=== PATIENT | female | born 1970 | race Caucasian/White ===

== ENCOUNTER 2020-02-11 21:50 | Inpatient (IN) | payer SELFPAY ==
[~2020-02-11] VITALS: Ht 152.4 cm; Wt 97.0 kg
[~2020-02-11 21:50] MED LIST: ALPR1T PO; HCT25T PO; HYDR118S10 PO; IBP600T1; MTP25TSR PO; SULF1TAB38 PO; TRAM50TA2 PO; ZLP10T PO
[2020-02-11] MEDS ORDERED: LACTATED RINGERS 1,000 ML IV ONE (22:01)
[2020-02-11] MEDS ORDERED: fentaNYL INJECTION 100 MCG/2 ML AMP IVP STA (22:25)
[2020-02-11] MEDS ORDERED: IBUPROFEN TABLET 200 MG TAB PO STA (22:25)
[2020-02-11 22:38] LABS: BASOPHILS % (AUTO) 0 % (0-10); EOSINOPHILS % (AUTO) 0 % (0-10); HEMATOCRIT 43 % (35-52); HEMOGLOBIN 14.8 G/DL (11.5-16.0); LYMPHOCYTES # (AUTO) 0.5 X 10^3 (1.0-4.0); LYMPHOCYTES % (AUTO) 13 % (12-44); MEAN CORPUSCULAR HEMOGLOBIN 30 PG (25-34); MEAN CORPUSCULAR HGB CONC 34 G/DL (32-36); MEAN CORPUSCULAR VOLUME 88 FL (80-99); MONOCYTES # (AUTO) 0.3 X 10^3 (0.0-1.0); MONOCYTES % (AUTO) 8 % (0-12); NEUTROPHILS # (AUTO) 2.7 X 10^3 (1.8-7.8); NEUTROPHILS % (AUTO) 78 % (42-75); PLATELET COUNT 173 10^3/uL (130-400); RED CELL DISTRIBUTION WIDTH 13.4 % (10.0-14.5); WHITE BLOOD COUNT 3.5 10^3/uL (4.3-11.0)
--- NOTE | 2020-02-11 22:44 | ED General ---
General Chief Complaint: Chest Pain Stated Complaint: CP Source of Information: Patient Exam Limitations: No Limitations History of Present Illness Date Seen by Provider: Feb 11, 2020 Time Seen by Provider: 21:52 Initial Comments Here with report of chest pressure, shortness of air, body aches and overall not feeling well since 4:30 this morning. States may have been not feeling well yesterday. She did take 2 Falls of NyQuil about 2 hours prior to arrival. She arrives febrile, sweating and in distress. Denies nausea, vomiting, diarrhea. Denies contact with COVID positive patient's. Admits to methamphetamine use 2-3 days ago. Denies significant cough. Reports that she's been drinking okay but had decreased appetite. Timing/Duration: 1-2 Days Severity: Moderate Associated Systoms: Chest Pain, Cough, Fever/Chills, Loss of Appetite; No Nausea/Vomiting; Shortness of Air, Weakness Allergies and Home Medications Allergies Coded Allergies: No Known Drug Allergies (Verified Allergy, Unknown, 07/08/09) Home Medications Alprazolam 1 Mg Tablet, 2 MG PO BID, (Reported) Hydrochlorothiazide 25 Mg Tab, 1 TAB PO DAILY, (Reported) Hydrocodone/Acetaminophen 1 Each Tablet, 1-2 EACH PO Q6H PRN Prescribed by: ELSA GAMBINO on 02/26/122237 Metoprolol Succinate 25 Mg Tab, 1 TAB PO DAILY, (Reported) Tramadol Hcl 50 Mg Tablet, 2 TAB PO TID, (Reported) Trimethoprim/Sulfamethoxazole 1 Ea Tablet, 1 EA PO BID Prescribed by: ELSA GAMBINO on 02/26/122237 Zolpidem Tartrate 10 Mg Tab, 10 MG PO HS, (Reported) Patient Home Medication List Home Medication List Reviewed: Yes Review of Systems Review of Systems Constitutional: see HPI, chills, fever EENTM: nose congestion; No throat pain Respiratory: cough (mild), short of breath; No wheezing Cardiovascular: chest pain; No edema, No palpitations Gastrointestinal: No abdominal pain, No diarrhea, No nausea, No vomiting Genitourinary: No dysuria, No frequency : No Musculoskeletal: back pain, muscle pain Skin: No change in color; other (Diaphoretic) Psychiatric/Neurological: Anxiety, Headache Hematologic/Lymphatic: No Symptoms Reported All Other Systems Reviewed Negative Unless Noted: Yes Past Yfbnflj-Uiiyie-Fdyutg Hx Past Med/Social Hx: Reviewed Nursing Past Med/Soc Hx Patient Social History Alcohol Use: Denies Use Recreational Drug Use: Yes (meth) Smoking Status: Current Everyday Smoker Past Medical History Surgeries: Yes Hysterectomy Respiratory: No Cardiac: No Neurological: No 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 Disorders: No [employer] 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 oz. kg; BMI Method:Stated General Appearance: WD/WN, Anxious, Obese HEENT: PERRL/EOMI, Pharynx Normal Neck: Non Tender, Supple Respiratory: Lungs Clear, Normal Breath Sounds Cardiovascular: No Murmur, Tachycardia Gastrointestinal: Non Tender Back: Normal Inspection, No Vertebral Tenderness Extremity: Normal Range of Motion, Non Tender Neurologic/Psychiatric: Alert, Oriented x3 Skin: normal color, diaphoresis Focused Exam Lactate Level 02/11/20 22:20: Lactic Acid Level 1.67 Lactic Acid Level Laboratory Tests Test 02/11/20 22:20 Lactic Acid Level 1.67 MMOL/L (0.50-2.00) Progress/Results/Core Measures Suspected Sepsis SIRS Temperature: Pulse: Respiratory Rate: Laboratory Tests 02/11/20 22:20: White Blood Count 3.5L Blood Pressure / Mean: 02/11/20 22:20: Lactic Acid Level 1.67 Laboratory Tests 02/11/20 22:20: Creatinine 0.85, INR Comment 1.0, Platelet Count 173, Total Bilirubin 0.4 Results/Orders Lab Results Laboratory Tests Test 02/11/20 22:20 02/11/20 23:28 Range/Units White Blood Count 3.5 L 4.3-11.0 10^3/uL Red Blood Count 4.91 4.35-5.85 10^6/uL Hemoglobin 14.8 11.5-16.0 G/DL Hematocrit 43 35-52 % Mean Corpuscular Volume 88 80-99 FL Mean Corpuscular Hemoglobin 30 25-34 PG Mean Corpuscular Hemoglobin Concent 34 32-36 G/DL Red Cell Distribution Width 13.4 10.0-14.5 % Platelet Count 173 130-400 10^3/uL Mean Platelet Volume 10.0 7.4-10.4 FL Neutrophils (%) (Auto) 78 H 42-75 % Lymphocytes (%) (Auto) 13 12-44 % Monocytes (%) (Auto) 8 0-12 % Eosinophils (%) (Auto) 0 0-10 % Basophils (%) (Auto) 0 0-10 % Neutrophils # (Auto) 2.7 1.8-7.8 X 10^3 Lymphocytes # (Auto) 0.5 L 1.0-4.0 X 10^3 Monocytes # (Auto) 0.3 0.0-1.0 X 10^3 Eosinophils # (Auto) 0.0 0.0-0.3 10^3/uL Basophils # (Auto) 0.0 0.0-0.1 10^3/uL Erythrocyte Sedimentation Rate 9 0-20 MM/HR Prothrombin Time 13.9 12.2-14.7 SEC INR Comment 1.0 0.8-1.4 Activated Partial Thromboplast Time 35 24-35 SEC D-Dimer 1.48 H 0.00-0.49 UG/ML Sodium Level 132 L 135-145 MMOL/L Potassium Level 4.0 3.6-5.0 MMOL/L Chloride Level 101 98-107 MMOL/L Carbon Dioxide Level 20 L 21-32 MMOL/L Anion Gap 11 5-14 MMOL/L Blood Urea Nitrogen 12 7-18 MG/DL Creatinine 0.85 0.60-1.30 MG/DL Estimat Glomerular Filtration Rate > 60 BUN/Creatinine Ratio 14 Glucose Level 116 H 70-105 MG/DL Lactic Acid Level 1.67 0.50-2.00 MMOL/L Calcium Level 8.8 8.5-10.1 MG/DL Corrected Calcium 9.0 8.5-10.1 MG/DL Total Bilirubin 0.4 0.1-1.0 MG/DL Aspartate Amino Transf (AST/SGOT) 114 H 5-34 U/L Alanine Aminotransferase (ALT/SGPT) 146 H 0-55 U/L Alkaline Phosphatase 89 40-136 U/L Lactate Dehydrogenase 306 H 125-220 U/L Troponin I 0.035 H <0.028 NG/ML C-Reactive Protein High Sensitivity 3.58 H 0.00-0.50 MG/DL Total Protein 6.9 6.4-8.2 GM/DL Albumin 3.7 3.2-4.5 GM/DL Procalcitonin 0.27 H <0.10 NG/ML Urine Color YELLOW Urine Clarity SL CLOUDY Urine pH 6.5 5-9 Urine Specific [place] 1.020 1.016-1.022 Urine Protein NEGATIVE NEGATIVE Urine Glucose (UA) NEGATIVE NEGATIVE Urine Ketones NEGATIVE NEGATIVE Urine Nitrite NEGATIVE NEGATIVE Urine Bilirubin NEGATIVE NEGATIVE Urine Urobilinogen 0.2 < = 1.0 MG/DL Urine Leukocyte Esterase NEGATIVE NEGATIVE Urine RBC (Auto) 1+ H NEGATIVE Urine RBC RARE /HPF Urine WBC NONE /HPF Urine Squamous Epithelial Cells RARE /HPF Urine Crystals NONE /LPF Urine Bacteria TRACE /HPF Urine Casts NONE /LPF Urine Mucus SMALL H /LPF Urine Culture Indicated CULTURE PENDING Urine Opiates Screen NEGATIVE NEGATIVE Urine Oxycodone Screen NEGATIVE NEGATIVE Urine Methadone Screen NEGATIVE NEGATIVE Urine Propoxyphene Screen NEGATIVE NEGATIVE Urine Barbiturates Screen NEGATIVE NEGATIVE Ur Tricyclic Antidepressants Screen NEGATIVE NEGATIVE Urine Phencyclidine Screen NEGATIVE NEGATIVE Urine Amphetamines Screen POSITIVE H NEGATIVE Urine Methamphetamines Screen NEGATIVE NEGATIVE Urine Benzodiazepines Screen POSITIVE H NEGATIVE Urine Cocaine Screen NEGATIVE NEGATIVE Urine Cannabinoids Screen POSITIVE H NEGATIVE My Orders Orders - ELSA GAMBINO MD Cbc With Automated Diff (02/11/20 22:) Comprehensive Metabolic Panel (02/11/20 22:) Blood Culture (02/11/20 22:01) Sputum Culture (02/11/20 22:) Urinalysis (02/11/20 22:) Urine Culture (02/11/20 22:) Protime With Inr (02/11/20 22:) Partial Thromboplastin Time (02/11/20 22:) Chest 1 View, Ap/Pa Only (02/11/20 22:) Ed Iv/Invasive Line Start (02/11/20 22:) Ekg Tracing (02/11/20 22:) Troponin I (02/11/20 22:) Vital Signs Adult Sepsis Patie Q15M (02/11/20 22:01) O2 (02/11/20 22:) Remove Rings In Anticipation O (02/11/20 22:) Lactic Acid Analyzer (02/11/20 22:01) Fibrin Degradation Products (02/11/20 22:01) Procalcitonin (Pct) (02/11/20 22:01) Hs C Reactive Protein (02/11/20 22:) Erythrocyte Sedimentation Rate (02/11/20 22:01) LDH (02/11/20 22:01) Coronavirus Sars-Cov-2 So 2018 (02/11/20 22:01) Lactated Ringers (Lr 1000 Ml Iv Solution (02/11/20 22:01) Fentanyl Injection (Sublimaze Injection (02/11/20 22:25) Ibuprofen Tablet (Motrin Tablet) (02/11/20 22:25) Drug Screen Stat (Urine) (02/11/20 23:17) Aspirin Chewable Tablet (Baby Aspirin Ch (02/11/20 23:36) Medications Given in ED Current Medications Medications Dose Ordered Sig/Meryl Route Start Time Stop Time Status Last Admin Dose Admin Lactated Ringer's 1,000 ml @ 0 mls/hr Q0M ONCE IV 02/11/20 22:01 02/11/20 22:03 DC 02/11/20 22:20 0 MLS/HR Vital Signs/I&O 02/11/20 02/11/20 02/11/20 02/11/20 21:50 21:50 23:00 23:45 Temp 38.9 36.7 Pulse 119 90 101 Resp 25 20 20 B/P (MAP) 155/100 (118) 101/56 (71) 132/70 (90) Pulse Ox 94 92 92 O2 Delivery Room Air Room Air Room Air Room Air Capillary Refill : Progress Note : Progress Note Seen and evaluated. IV, labs, UA, EKG, chest x-ray, blood cultures, lactic acid and covered screening initiated. LR 1 L bolus and ibuprofen 600 mg by mouth due to fever and recent Tylenol use. Fentanyl 50 g IV for chest pain. Monitor patient. 2332: Findings as above. I do note elevated d-dimer was slightly elevated troponin. We were able to get UA. I discussed the case with Dr. Torres and she will go to the stepdown unit. I did discuss the case with Dr. Ames and he will see the patient and consult. I have also discussed the case with the virtual ICU team. We will go ahead and initiate Lovenox 40 mg subcutaneous daily with the first dose in the ICU tonight. We will not give full dose anticoagulation as the elevated d-dimer is likely related to COVID-19 infection which this patient likely has. Chest x-ray at this point does not show acute pneumonia. We will hold on further scanning pending outpatient is doing. Admit, inpatient status. Patient agrees with plan. I did discuss the case with the patient's father earlier and his contact information is on the chart. ECG Initial ECG Impression Date: Feb 11, 2020 Initial ECG Impression Time: 21:52 Initial ECG Rate: 116 Initial ECG Rhythm: S.Tach Comment Sinus tachycardia with normal axis. No evidence of ST elevation MO. No previous available for comparison. Interpreted by me. Departure Communication (Admissions) Time/Spoke to Admitting Phy: 23:32 Time/Spoke to Consulting Phy: 23:33 Impression Primary Impression: Chest pain Qualified Codes: R07.9 - Chest pain, unspecified Additional Impressions: Elevated troponin Elevated d-dimer COVID-19 evaluation Disposition: ADMITTED INPATIENT Condition: Stable Admissions Decision to Admit Reason: Admit from ER (General) Decision to Admit/Date: Feb 11, 2020 Time/Decision to Admit Time: 23:32 Departure-Patient Inst. Referrals: SANTO ALVARADO MD (PCP/Family) Primary Care Physician ELSA GAMBINO MD Feb 11, 2020 22:44
--- OUTSIDE RECORDS SUMMARY | 2020-02-11 22:46 | XMS REPORT | Continuity of Care Document ---
Author Organization Unknown Address Unknown Phone Unavailable Allergies There is no data. Medications There is no data. Problems Date Dx Coded Attending Type Code Diagnosis Diagnosed By 02/20/2009 SANTO ALVARADO MD 461.9 Sinusitis Acute 10/04/2012 SANTO ALVARADO MD 311 DEPRESSIVE DISORDER NOT ELSEWHERE CLASSIFIED 10/04/2012 SANTO ALVARADO MD 780.7 9 OTHER MALAISE AND FATIGUE Procedures Code Description [place] [address] ROUT INE VENIPUNCTURE 10/04/2012 85036 CMP 10/05/20129011288 GF R CALC (RESULT ONLY) 10/05/2012 00547 TSH 10/05/2012 Results Test Result Range Complete blood count (CBC) with automate d white blood cell (WBC) differential - 02/11/20 22:20 Blood leukocytes automated count (number/volume) 3.5 10*3/uL 4.3-11.0 Blood erythrocytes automated count (number/volume) 4.91 10*6/uL 4.35-5.85 Venous blood hemoglobin measurement (mass/volume) 14.8 g/dL 11.5-16.0 Blood hematocrit (volume fraction) 43 % 35-52 Automated erythrocyte mean corpuscular volume 88 [ foz_us] 80-99 Automated erythrocyte mean corpuscular h emoglobin (mass per erythrocyte) 30 pg 25-34 Automated erythrocyte mean corpuscular h emoglobin concentration measurement (mass/volume) 34 g/dL 32-36 Automated erythrocyte distribution width ratio 13. 4 % 10.0- 14.5 Automated blood platelet count (count/volume) 173 10*3/uL 130-400 Automated blood platelet mean volume measurement 10.0 [foz_us] 7.4-10.4 Automated blood neutrophils/100 leukocytes 78 % 42-75 Automated blood lymphocytes/100 leukocytes 13 % 12-44 Blood monocytes/100 leukocytes 8 % 0-12 Automated blood eosinophils/100 leukocytes 0 % 0-10 Automated blood basophils/100 leukocytes 0 % 0-10 Blood neutrophils automated count (number/volume) 2.7 10*3 1.8-7.8 Blood lymphocytes automated count (number/volume) 0.5 10*3 1.0-4.0 Blood monocytes automated count (number/volume) 0. 3 10*3 0.0-1.0 Automated eosinophil count 0.0 10*3/uL 0 .0-0.3 Automated blood basophil count (count/volume) 0.0 10*3/uL 0.0-0.1 Encounters ACCT No. Visit Date/Time Discharge Status Pt. Type Provider Facility Loc./Unit Complaint [id number] 10/04/2012 15:43:00 10/04/2012 23:59: 59 [facility] Outpatient SANTO ALVARADO MD [id number] 02/11/2020 22:39:00 Document Registration
[2020-02-11 22:52] LABS: ALBUMIN 3.7 GM/DL (3.2-4.5); CHLORIDE 101 MMOL/L (98-107); SODIUM 132 MMOL/L (135-145)
[2020-02-11 22:53] LABS: CALCIUM 8.8 MG/DL (8.5-10.1); FIBRIN DEGRADATION PRODUCTS 1.48 UG/ML (0.00-0.49); PROTHROMBIN TIME PATIENT 13.9 SEC (12.2-14.7)
[2020-02-11 22:54] LABS: GLUCOSE 116 MG/DL (70-105); TOTAL PROTEIN 6.9 GM/DL (6.4-8.2)
[2020-02-11 22:55] LABS: CARBON DIOXIDE 20 MMOL/L (21-32)
[2020-02-11 22:56] LABS: BILIRUBIN,TOTAL 0.4 MG/DL (0.1-1.0)
[2020-02-11 22:57] LABS: ALKALINE PHOSPHATASE 89 U/L (40-136); ERYTHROCYTE SEDIMENTATION RATE 9 MM/HR (0-20)
[2020-02-11 22:58] LABS: CREATININE SERUM 0.85 MG/DL (0.60-1.30); GFR ESTIMATED > 60
[2020-02-11 22:59] LABS: BUN/CREATININE RATIO 14
[2020-02-11 23:00] VITALS: BP 101/56
[2020-02-11 23:01] LABS: ALANINE AMINOTRANSFERASE 146 U/L (0-55)
[2020-02-11] MEDS ORDERED: ASPIRIN 81 MG CHEW (CHILDREN'S ASA) PO STA (23:36)
[2020-02-11 23:44] LABS: BILIRUBIN,URINE NEGATIVE (NEGATIVE); CLARITY,URINE SL CLOUDY; COLOR,URINE YELLOW; GLUCOSE, URINE (UA) NEGATIVE (NEGATIVE); KETONES,URINE NEGATIVE (NEGATIVE); LEUKOCYTE ESTERASE ,URINE NEGATIVE (NEGATIVE); NITRITE,URINE NEGATIVE (NEGATIVE); PH,URINE 6.5 (5-9); PROTEIN,URINE NEGATIVE (NEGATIVE)
[2020-02-11 23:45] VITALS: BP 132/70
[2020-02-11 23:51] LABS: BACTERIA,URINE TRACE /HPF; RBC,URINE RARE /HPF; SQUAMOUS EPITHELIAL CELL,UR RARE /HPF
[2020-02-12] VITALS (10 sets, daily range): BP systolic 93–155; BP diastolic 60–100
[2020-02-12] LABS: AMPHETAMINE SCREEN, URINE POSITIVE (NEGATIVE); BARBITURATE SCREEN URINE NEGATIVE (NEGATIVE); BENZODIAZEPINES SCREEN URINE POSITIVE (NEGATIVE); CANNABINOID SCREEN, URINE POSITIVE (NEGATIVE); COCAINE SCREEN URINE NEGATIVE (NEGATIVE); METHADONE STAT NEGATIVE (NEGATIVE); METHAMPHETAMINE SCREEN URINE S NEGATIVE (NEGATIVE); OPIATE SCREEN URINE NEGATIVE (NEGATIVE); OXYCODONE STAT NEGATIVE (NEGATIVE); PROPOXYPHENE STAT NEGATIVE (NEGATIVE); TRICYCLIC ANTIDEPRESSANTS SCRE NEGATIVE (NEGATIVE)
--- OUTSIDE RECORDS SUMMARY | 2020-02-12 00:03 | XMS REPORT | Continuity of Care Document ---
[...] Code Description [place] [address] ROUT INE VENIPUNCTURE 10/04/2012 12157 CMP 10/05/[id number] GF R CALC (RESULT ONLY) 10/05/2012 18103 TSH 10/05/2012 Results Test Result Range Complete [...] blood basophil count (count/volume) 0.0 10*3/uL 0.0-0.1 Comprehensive metabolic panel - 02/11/20 22:20 Serum or plasma sodium measurement (moles/volume) 132 mmol/L 135-145 Serum or plasma potassium measurement (moles/volume) 4.0 mmol/L 3.6-5.0 Serum or plasma chloride measurement (moles/volume) 101 mmol/L 98-107 Carbon dioxide 20 mmol/L 21-32 Serum or plasma anion gap determination (moles/volume) 11 mmol/L 5-14 Serum or plasma urea nitrogen measurement (mass/volume ) 12 mg/dL 7-18 Serum or plasma creatinine measurement (mass/volume) 0.85 mg/dL 0.60-1.30 Serum or plasma urea nitrogen/creatinine mass ratio 14 NRG Serum or plasma creatinine measurement w ith calculation of estimated glomerular filtration rate > NRG Serum or plasma glucose measurement (mass/volume) 116 mg/dL 70-105 Serum or plasma calcium measurement (mass/volume) 8.8 mg/dL 8.5-10.1 Serum or plasma total bilirubin measurement (mass/volu me) 0.4 mg/dL 0.1-1.0 Serum or plasma alkaline phosphatase tao surement (enzymatic activity/volume) 89 U/L 40-136 Serum or plasma aspartate aminotransfera se measurement (enzymatic activity/volume) 114 U/L 5-34 Serum or plasma alanine aminotransferase measurement (enzymatic activity/volume) 146 U/L 0-55 Serum or plasma protein measurement (mass/volume) 6.9 g/dL 6.4-8.2 Serum or plasma albumin measurement (mass/volume) 3.7 g/dL 3.2-4.5 CALCIUM CORRECTED 9.0 mg/dL 8.5-10.1 Blood lactic acid measurement (moles/vol ume) - 02/11/20 22:20 Blood lactic acid measurement (moles/volume) 1.67 mmol/L 0.50-2.00 Erythrocyte sedimentation rate by jaqueline gren method - 02/11/20 22:20 Erythrocyte sedimentation rate by westergren method 9 mm 0- 20 Serum ragweed IgE antibody assay - 02/10 22:20 Serum ragweed IgE antibody assay 306 U/L 125-220 PROCALCITONIN (PCT) - 02/11/20 22:20 PROCALCITONIN (PCT) 0.27 ng/mL <0.10 PT panel in platelet poor plasma by coag ulation assay - 02/11/20 22:20 Prothrombin time (PT) in platelet poor plasma by coagu lation assay 13.9 s 12.2-14.7 INR in platelet poor plasma or blood by coagulation as say 1.0 0.8-1.4 Activated partial thromboplastin time (a PTT) in platelet poor plasma bycoagulation assay - 02/11/20 22:20 Activated partial thromboplastin time (a PTT) in platelet poor plasma bycoagulation assay 35 s 24-35 Fibrin D-dimer FEU measurement in platel et poor plasma (mass/volume) - 02/11/20 22:20 Fibrin D-dimer FEU measurement in platelet poor plasma (mass/volume) 1.48 ug/mL 0.00-0.49 Serum or plasma troponin i.cardiac measu rement (mass/volume) - 02/11/20 22:20 Serum or plasma troponin i.cardiac measurement (mass/v olume) 0.035 ng/mL <0.028 Serum or plasma C reactive protein measu rement (mass/volume) - 02/11/20 22:20 Serum or plasma C reactive protein measurement (mass/v olume) 3.58 mg/dL 0.00-0.50 Complete urinalysis with reflex to cultu re - 02/11/20 23:28 Urine color determination YELLOW NRG Urine clarity determination SL CLOUDY N RG Urine pH measurement by test strip 6.5 5-9 Specific gravity of urine by test strip 1.020 1.016-1.022 Urine protein assay by test strip, semi-quantitative NEGATIVE NEGATIVE Urine glucose detection by automated test strip NE GATIVE NEGATIVE Erythrocytes detection in urine sediment by light micr oscopy 1+ NEGATIVE Urine ketones detection by automated test strip NE GATIVE NEGATIVE Urine nitrite detection by test strip NEGATIVE NEGATIVE Urine total bilirubin detection by test strip NEGA TIVE NEGATIVE Urine urobilinogen measurement by automated test strip (mass/volume) 0.2 mg/dL < = 1.0 Urine leukocyte esterase detection by dipstick NEG ATIVE NEGATIVE Automated urine sediment erythrocyte cou nt by microscopy (number/high power field) RARE NRG Automated urine sediment leukocyte count by microscopy (number/high power field) NONE NRG Bacteria detection in urine sediment by light microsco py TRACE NRG Squamous epithelial cells detection in u rine sediment by light microscopy RARE NRG Crystals detection in urine sediment by light microsco py NONE NRG Casts detection in urine sediment by light microscopy NONE NRG Mucus detection in urine sediment by light microscopy SMALL NRG Complete urinalysis with reflex to culture CULTURE PENDING NRG Urine drug screening test - 02/11/20 23: 28 Urine phencyclidine detection by screening method NEGATIVE NEGATIVE Urine benzodiazepines detection by screening method POSITIVE NEGATIVE Urine cocaine detection NEGATIVE NEGATI VE Urine amphetamines detection by screening method P OSITIVE NEGATIVE Urine methamphetamine detection by screening method NEGATIVE NEGATIVE Urine cannabinoids detection by screening method P OSITIVE NEGATIVE Urine opiates detection by screening method NEGATI VE NEGATIVE Urine barbiturates detection NEGATIVE N EGATIVE Screening urine tricyclic antidepressants detection NEGATIVE NEGATIVE Urine methadone detection by screening method NEGA TIVE NEGATIVE Urine oxycodone detection NEGATIVE NEGA TIVE Urine propoxyphene detection NEGATIVE N EGATIVE Encounters ACCT No. Visit Date/Time Discharge Status Pt. Type Provider Facility Loc./Unit Complaint [id number] 10/04/2012 15:43:00 10/04/2012 23:59: 59 [facility] Outpatient JENNY MOROCHO, SANTO [id number] 02/11/2020 22:39:00 Document Registration
[2020-02-12] MEDS ORDERED: LACTATED RINGERS 1,000 ML IV ONE (00:36)
[2020-02-12] MEDS ORDERED: ONDANSETRON 4 MG/2 ML (SDV) Z0FRAN IV PRN (00:45)
[2020-02-12] MEDS ORDERED: LACTATED RINGERS 1,000 ML IV SCH (00:45)
[2020-02-12] MEDS ORDERED: ACETAMINOPHEN 500 MG TAB (TYLENOL) PO PRN (00:45)
[2020-02-12] MEDS ORDERED: ENOXAPARIN 40 MG/0.4 ML (LOVENOX) SYR SC SCH (01:04)
[2020-02-12 01:31] LABS: CREATINE KINASE 89 U/L (29-168)
[2020-02-12] MEDS ORDERED: RT-ALBUTEROL/IPRATROPIUM 3 ML (DUONEB) VIAL INH PRN (02:15)
[2020-02-12 03:16] LABS: BASOPHILS % (AUTO) 1 % (0-10); EOSINOPHILS % (AUTO) 0 % (0-10); HEMATOCRIT 41 % (35-52); HEMOGLOBIN 13.6 G/DL (11.5-16.0); LYMPHOCYTES # (AUTO) 0.5 X 10^3 (1.0-4.0); LYMPHOCYTES % (AUTO) 19 % (12-44); MEAN CORPUSCULAR HEMOGLOBIN 30 PG (25-34); MEAN CORPUSCULAR HGB CONC 34 G/DL (32-36); MEAN CORPUSCULAR VOLUME 88 FL (80-99); MEAN PLATELET VOLUME 9.9 FL (7.4-10.4); MONOCYTES # (AUTO) 0.2 X 10^3 (0.0-1.0); MONOCYTES % (AUTO) 8 % (0-12); NEUTROPHILS % (AUTO) 73 % (42-75); PLATELET COUNT 144 10^3/uL (130-400); RED CELL DISTRIBUTION WIDTH 13.6 % (10.0-14.5); WHITE BLOOD COUNT 2.8 10^3/uL (4.3-11.0)
[2020-02-12 03:26] LABS: ALBUMIN 3.3 GM/DL (3.2-4.5); CHLORIDE 103 MMOL/L (98-107); POTASSIUM 3.9 MMOL/L (3.6-5.0); SODIUM 134 MMOL/L (135-145)
[2020-02-12 03:27] LABS: CALCIUM 8.2 MG/DL (8.5-10.1)
[2020-02-12 03:28] LABS: GLUCOSE 105 MG/DL (70-105)
[2020-02-12 03:30] LABS: BILIRUBIN,TOTAL 0.3 MG/DL (0.1-1.0); CARBON DIOXIDE 22 MMOL/L (21-32)
[2020-02-12 03:32] LABS: ALKALINE PHOSPHATASE 81 U/L (40-136); GFR ESTIMATED > 60
[2020-02-12 03:33] LABS: BUN/CREATININE RATIO 16
[2020-02-12 03:35] LABS: ALANINE AMINOTRANSFERASE 147 U/L (0-55)
--- NOTE | 2020-02-12 05:11 | Pulmonary Consultation ---
History of Present Illness History of Present Illness Date Seen by Provider: Feb 12, 2020 Time Seen by Provider: 05:03 Date of Admission History of Present Illness 49yo with hx of drug use presented secondary to worsening SOB, body aches that started around 430 yesterday morning. Pt had fever of 102 upon admission. UDS is positive for meth and marijuanna. Denies contact with COVID positive patient's. Admits to methamphetamine use 2-3 days ago. Denies significant cough. Allergies and Home Medications Allergies Coded Allergies: No Known Drug Allergies (Verified , 07/08/09) Home Medications Alprazolam 1 Mg Tablet, 2 MG PO BID, (Reported) Hydrochlorothiazide 25 Mg Tab, 1 TAB PO DAILY, (Reported) Hydrocodone/Acetaminophen 1 Each Tablet, 1-2 EACH PO Q6H PRN Prescribed by: ELSA GAMBINO on 02/26/122237 Metoprolol Succinate 25 Mg Tab, 1 TAB PO DAILY, (Reported) Tramadol Hcl 50 Mg Tablet, 2 TAB PO TID, (Reported) Trimethoprim/Sulfamethoxazole 1 Ea Tablet, 1 EA PO BID Prescribed by: ELSA GAMBINO on 02/26/122237 Zolpidem Tartrate 10 Mg Tab, 10 MG PO HS, (Reported) Past Lhssmky-Wbirdh-Vtxfnw Hx Past Med/Social Hx: Reviewed Nursing Past Med/Soc Hx Patient Social History Alcohol Use: Denies Use Number of Drinks Today: 0 Recreational Drug Use: Yes (meth) Drug of Choice: IV METHAMPHETAMINE Smoking Status: Current Everyday Smoker Type Used: Cigarettes 2nd Hand Smoke Exposure: Yes Recent Foreign Travel: No Contact w/Someone Who Travel: No Recent Infectious Disease Expo: No Recent Hopitalizations: No Past Medical History Surgeries: Yes Hysterectomy Respiratory: No Cardiac: No Neurological: No 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: No 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 Sexually Transmitted Disease: No Genitourinary: No Gastrointestinal: No Musculoskeletal: No Endocrine: No Psychosocial: Yes Anxiety Blood Disorders: No Family Medical History Reviewed and Corrections made Heart Disease, Stroke Review of Systems Time Seen by Provider: 05:03 Constitutional: Fever, Chills, Sweats, Weakness, Malaise, Other Eyes: No: Pain, Vision change, Conjunctivae inflammation, Eyelid inflammation, Other, Redness ENT: No: Ear pain, Ear discharge, Nose pain, Nose discharge, Nose congestion, Mouth pain, Mouth swelling, Throat pain, Throat swelling, Other Respiratory: Cough, Shortness of breath, SOB with excertion, Wheezing Cardiovascular: Chest Pain, Palpitations Gastrointestinal: Nausea; No: Vomiting, Diarrhea, Constipation Sepsis Event Evaluation Height, Weight, BMI Height: '" Weight: lbs. oz. kg; 41.41 BMI Method:Stated Exam Exam Vital Signs Date Time Temp Pulse Resp B/P (MAP) Pulse Ox O2 Delivery O2 Flow Rate FiO2 02/12/20 04:00 94 Nasal Cannula 2.00 02/12/20 04:00 74 20 119/71 (87) 93 Room Air 02/12/20 03:00 76 16 113/60 (77) 93 Room Air 02/12/20 02:38 76 14 93/63 (73) 91 Room Air 02/12/20 01:44 38.9 119 94 21 02/12/20 01:00 96 12 104/72 (83) 94 Room Air 02/12/20 01:00 96 02/12/20 00:50 36.7 97 16 109/83 92 Room Air 02/12/20 00:45 36.9 89 16 110/68 (82) 92 Room Air 02/12/20 00:45 Room Air 02/12/20 00:08 36.9 89 16 110/68 92 Room Air 02/11/20 23:45 36.7 101 20 132/70 (90) 92 Room Air 02/11/20 23:00 90 20 101/56 (71) 92 Room Air 02/11/20 21:50 38.9 119 25 155/100 (118) 94 Room Air 02/11/20 21:50 Room Air I & O 02/12/20 07:00 Intake Total 1000 ml Balance 1000 ml Height & Weight Height: '" Weight: lbs. oz. kg; 41.41 BMI Method:Stated General Appearance: WD/WN, Anxious, Obese HEENT: PERRL/EOMI, Pharynx Normal Neck: Non Tender, Supple Respiratory: Lungs Clear, Normal Breath Sounds Cardiovascular: No Murmur, Tachycardia Capillary Refill: Less Than 3 Seconds Extremity: Normal Range of Motion, Non Tender Neurologic/Psychiatric: Alert, Oriented x3 Results Lab Laboratory Tests 02/11/20 22:20 02/12/20 02:30 Assessment/Plan Assessment/Plan SOB -r/o COVID Tm 102 (Motrin was given) while in the ED -Currently requiring 2 liters NC -COVID pending -Very suspicious for COVID. If testing is negative will leave in isolation and repeat testing. -check Ferritin -Start Rocephin and azithromycin NSTEMI -Cardiology following -Repeat Troponin Methamphetamine, and marijuana use -Education ANGELY MCKINNEY DO Feb 12, 2020 05:11
[2020-02-12] MEDS ORDERED: cefTRIAXone FOR IV USE 1,000 MG in WATER (STERILE) FOR INJECTION 10 ML IV SCH (05:15)
[2020-02-12] MEDS ORDERED: AZITHROMYCIN INJECTION 500 MG in NS (IVPB) 250 ML IV ONE (05:15)
--- NOTE | 2020-02-12 07:44 | Diagnostic Imaging Report ---
EXAM: CHEST 1 VIEW, AP/PA ONLY INDICATION: Chest pain. COMPARISON: None. FINDINGS: Normal heart size and pulmonary vascularity. No dense consolidation, pleural effusion or pneumothorax. No acute osseous findings. IMPRESSION: Negative chest. Dictated by: Dictated on workstation # [id number]
[2020-02-12] MEDS ORDERED: ALBUTEROL/IPRATROP (COMBIVENT RESPIMAT) 4 GM INHALER IH SCH (08:00)
[2020-02-12] MEDS ORDERED: RT-ALBUTEROL/IPRATROPIUM 3 ML (DUONEB) VIAL INH SCH (08:00)
--- NOTE | 2020-02-12 08:10 | Short Stay Summary-Hospitalist ---
History of Present Illness Source: RN/MD Exam Limitations: no limitations Date Seen 02/12/20 Time Seen by a Provider: 00:00 Attending Physician Viviane Torres DO PCP Yogesh Arora MD Referring Physician Date of Admission Feb 11, 2020 at 23:33 Home Medications & Allergies Home Medications Reviewed patient Home Medication Reconciliation performed by pharmacy medication reconciliations podiatric technician and/or nursing. Patients Allergies have been reviewed. Allergies Allergies Coded Allergies No Known Drug Allergies (Hkhjujpc99/11/09) Past Wnurbcl-Zdeiqy-Kthbip Hx Past Med/Social Hx: Reviewed Nursing Past Med/Soc Hx, Reviewed and Corrections made Patient Social History Alcohol Use: Denies Use Number of Drinks Today: 0 Recreational Drug Use: Yes (meth) Drug of Choice: IV METHAMPHETAMINE Smoking Status: Current Everyday Smoker Type Used: Cigarettes 2nd Hand Smoke Exposure: Yes Recent Foreign Travel: No Contact w/other who traveled: No Recent Hopitalizations: No Recent Infectious Disease Expo: No Past Medical History Surgeries: Hysterectomy 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: No Sexually Transmitted Disease: No Hysterectomy Psychosocial: Anxiety History of Blood Disorders: No Family History Reviewed and Corrections made Heart Disease, Stroke Review of Systems Constitutional: see HPI Physical Exam Physical Exam Vital Signs Vital Signs - First Documented 02/11/20 02/12/20 02/12/20 21:50 01:44 04:00 Temp 38.9 Pulse 119 Resp 25 B/P (MAP) 155/100 (118) Pulse Ox 94 O2 Delivery Room Air O2 Flow Rate 2.00 FiO2 21 Capillary Refill : Less Than 3 Seconds Height, Weight, BMI Height: '" Weight: lbs. oz. kg; 41.41 BMI Method:Stated General Appearance: WD/WN, Anxious, Obese, Other (left ama) HEENT: PERRL/EOMI, Pharynx Normal Neck: Non Tender, Supple Respiratory: Lungs Clear, Normal Breath Sounds Cardiovascular: No Murmur, Tachycardia Gastrointestinal: Non Tender Back: Normal Inspection, No Vertebral Tenderness Extremity: Normal Range of Motion, Non Tender Neurologic/Psychiatric: Alert, Oriented x3 Results Results/Procedures Labs Laboratory Tests 02/11/20 22:20 02/12/20 02:30 Patient resulted labs reviewed. Short Stay Diagnosis Discharge Diagnosis-Short Stay Admission Diagnosis Left AMA Final Discharge Diagnosis Left AMA Conclusion Plan Left AMA Clinical Quality Measures AMI/AHF: ASA po Prior to arrival: No DVT/VTE Risk/Contraindication: Risk Factor Score Per Nursin RFS Level Per Nursing on Admit: 4+=Very High VIVIANE TORRES DO Feb 12, 2020 08:09
--- NOTE | 2020-02-12 08:33 | NUR ---
Upon entering patients room, patient immediately asked to leave. This RN educated patient on need for IV antibiotics and that the doctor would be in this morning to see her. Patient stated "I thought I was having a heart attack last night. I feel fine now. I didn't have one. I need to go home and take care of my animals." Patient signed AMA paperwork. Patient educated on need to self quarantine. Ricki with Infectious Disease notified. Dr Torres, Dr Zamorano, and Dr Carlisle notified.
--- NOTE | 2020-02-12 10:19 | NUR ---
Received dietary consult for MST score. Note pt has left AMA, per chart review. Darien Crook, MS, RD, LD
[2020-02-13] MEDS ORDERED: AZITHROMYCIN INJECTION 250 MG in NS (IVPB) 250 ML IV SCH (05:00)
--- NOTE | 2020-02-13 14:26 | Physician Query Clarification ---
PQ-Further Specificity Admission/Discharge Admission Date: Feb 11, 2020 at 23:33 Discharge Date: Feb 12, 2020 at 08:00 The medical record reflects the following clinical scenario: History/Risk Factors: Smoker, abuse meth and marijuana, anxiety Clinical Findings: chest pain, elevated troponin - 0.035 02/10 and 0.028 02/11, elevated D-dimer, T 38.9C, chills, sweats, weakness, malaise, negative covid Treatment: Lactated ringers, Lovenox, fentanyl citrate, baby aspirin, IV Rocephin, Azithromycin Question: Can you further specify the underlying cause of the patient's symptoms(chest pain, elevated troponin) per the clinical indicators above? Please document a response in the Progress Notes or Discharge Summary. 1. type 2 GA d/t to (please specify condition) 2. chest pain, fever etiology undetermined 3. Other, with explanation of the clinical findings. 4. Clinically undetermined, no explanation for the clinical findings. PHYSICIAN RESPONSE Can you specify per above: 1 Please remember a lack of response to the above will prompt a phone page by CDI/Coding staff. In responding to this query, please exercise your independent professional judgment. The purpose of this communication is to more accurately reflect the complexity of your patients condition. The fact that a question is asked does not imply that any particular answer is desired or expected. Thank you for your timely response to this clarification. Requestors name: Brandon THIS PHYSICIAN QUERY FORM IS A PERMANENT PART OF THE MEDICAL RECORD BRANDON POLANCO Feb 13, 2020 14:26 KASSANDRA TONG DO Feb 13, 2020 21:13
== END 2020-02-12 08:00 | disposition left against medical advice (07) | DRG 282 ==
LOC: EDUNIT# 21:50 → ER 21:51 → ICU 23:33
PROVIDERS: ADMIT Internal Medicine; ATTEND Internal Medicine
DX: I21.A1 Myocardial infarction type 2 (principal); R50.9 Fever, unspecified; R53.1 Weakness; R00.0 Tachycardia, unspecified; R53.81 Other malaise; R06.02 Shortness of breath; R79.1 Abnormal coagulation profile; F41.9 Anxiety disorder, unspecified; F15.10 Other stimulant abuse, uncomplicated; F12.10 Cannabis abuse, uncomplicated; F17.200 Nicotine dependence, unspecified, uncomplicated; Z20.828 Contact with and (suspected) exposure to other viral communicable diseases; Z90.710 Acquired absence of both cervix and uterus; R06.00 Dyspnea, unspecified
CPT/HCPCS: 36415; 71045; 80053; 80306; 81000; 82550; 82728; 83605; 83615; 84145; 84484; 85025; 85379; 85610; 85652; 85730; 86141; 86769; 87040; 87081; 87088; 87635; 87804; 93005; 96361; 96374

== ENCOUNTER 2021-09-21 08:25 | Emergency (ER) | payer SELFPAY ==
[~2021-09-21] VITALS: Ht 167 cm; Wt 81.0 kg
[2021-09-21 08:25] VITALS: BP 184/99
--- NOTE | 2021-09-21 09:24 | ED General ---
General Chief Complaint: Abdominal/GI Problems Stated Complaint: N/V Nursing Triage Note: ARRIVED VIA EMS WITH COMPLAINTS OF N/V STARTING THIS AM. PT TOOK [facility] AT 0700. EMS REPORTS PT BEING UNCOOPERATIVE ET BY NOT ANSWERING THEM. UPON ARRIVAL PT AWAKE ET STATES SHE NEEDS MOVED OVER TO THE BED. ONCE IN THE BED PT SHUT EYES AND WILL NOT ANSWER QUESTIONS. AFTER MULTIPLE ATTEMPS I TOLD THE PT I WAS GOING TO STERNAL RUB HER IF SHE DID NOT ANSER. PT STILL WOULD NOT TALK ET LETHARGIC ACTING. AFTER A STERNAL RUB PT SAT UP ET STATES "DON'T FUCKING DO THAT" Source of Information: Patient Exam Limitations: No Limitations History of Present Illness Date Seen by Provider: Sep 21, 2021 Time Seen by Provider: 09:12 Initial Comments Patient is a 51-year-old female who arrives by ambulance this morning chief complaint of chest pain, nausea and vomiting. Patient states that she woke up with chest pain at 6 AM this morning. It radiates into her back. She had accompanying nausea and vomiting she states "all morning". She has a cough. She is Covid vaccinated. She is unaware of any known positive contacts recently. She denies feeling short of breath. She states "I do not know why I am not talking" as she is very slow to respond and will most of the time only nod her head yes and no. EMS reported to nursing staff that the patient was quite belligerent and uncooperative on transport. She does admit to methamphetamine use last use was yesterday. She does smoke cigarettes. No history of coronary artery disease known to her. She denies fevers or chills. No abdominal pain. She currently is "very" nauseated. No diarrhea. No problems with urination. Difficult to obtain review of systems secondary to the patient's degree of responsiveness. Timing/Duration: 4-6 Hours Severity: Moderate Associated Systoms: Chest Pain, Cough, Malaise, Nausea/Vomiting Allergies and Home Medications Allergies Coded Allergies: No Known Drug Allergies (Verified , 07/08/09) Patient Home Medication List Home Medication List Reviewed: Yes Alprazolam (Xanax) 1 Mg Tablet, 2 MG PO BID, (Reported) Entered as Reported by: JOSSELYN ADAMSON on 07/01/09 0916 Hydrochlorothiazide (Hctz) 25 Mg Tab, 1 TAB PO DAILY, (Reported) Entered as Reported by: SADIA MURPHY on 02/26/122135 Hydrocodone/Acetaminophen (Hydrocodon-Acetamin 7.5-325/15) 1 Each Tablet, 1-2 EACH PO Q6H PRN Prescribed by: ELSA GAMBINO on 02/26/122237 Metoprolol Succinate (Toprol Xl) 25 Mg Tab, 1 TAB PO DAILY, (Reported) Entered as Reported by: SADIA MURPHY on 02/26/122135 Tramadol Hcl (Tramadol Hcl) 50 Mg Tablet, 2 TAB PO TID, (Reported) Entered as Reported by: SADIA MURPHY on 02/26/122135 Trimethoprim/Sulfamethoxazole (Bactrim Ds) 1 Ea Tablet, 1 EA PO BID Prescribed by: ELSA GAMBINO on 02/26/122237 Zolpidem Tartrate (Ambien 10 Mg) 10 Mg Tab, 10 MG PO HS, (Reported) Entered as Reported by: JOSSELYN ADAMSON on 07/01/09 0914 Review of Systems Review of Systems Constitutional: see HPI EENTM: no symptoms reported Respiratory: cough Cardiovascular: chest pain Gastrointestinal: nausea, vomiting Genitourinary: no symptoms reported Musculoskeletal: back pain Skin: no symptoms reported All Other Systems Reviewed Negative Unless Noted: Yes Past Etzqdyl-Odhtpp-Waztjy Hx Past Medical History Surgeries: Yes Hysterectomy Respiratory: No Cardiac: No Neurological: No 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 Disorders: No DIRECTOR OF COUNTERINTELLIGENCE History: Hysterectomy Sexually Transmitted Disease: No Genitourinary: No Gastrointestinal: No Musculoskeletal: No Endocrine: No Psychosocial: Yes Anxiety Blood Disorders: No Family Medical History Heart Disease, Stroke Physical Exam Vital Signs Vital Signs - First Documented 09/21/21 08:25 Temp 36.3 Pulse 77 Resp 16 B/P (MAP) 184/99 (127) Pulse Ox 93 O2 Delivery Room Air Capillary Refill : Height, Weight, BMI Height: '" Weight: lbs. oz. kg; 29.00 BMI Method:Stated General Appearance: No Apparent Distress, WD/WN, Other (laying quietly in the bed. no distress. wet wash cloth over her forehead) Eyes: Bilateral Eye Other (patient will not open her eyes) HEENT: Moist Mucous Membranes Neck: Normal Inspection Respiratory: Lungs Clear, Normal Breath Sounds, No Accessory Muscle Use, No Respiratory Distress Cardiovascular: Regular Rate, Rhythm, Normal Peripheral Pulses Gastrointestinal: Normal Bowel Sounds, Non Tender, Soft Extremity: Normal Capillary Refill, Normal Inspection, Normal Range of Motion, Non Tender, No Calf Tenderness, No Pedal Edema Neurologic/Psychiatric: Alert, Oriented x3, No Motor/Sensory Deficits, Normal Mood/Affect Skin: Normal Color, Warm/Dry Progress/Results/Core Measures Suspected Sepsis SIRS Temperature: Pulse: 77 Respiratory Rate: 16 Laboratory Tests 09/21/21 10:20: White Blood Count 6.9 Blood Pressure 184 /99 Mean: 127 Laboratory Tests 09/21/21 10:20: Creatinine 0.79, Platelet Count 220, Total Bilirubin 0.4 Results/Orders Lab Results Laboratory Tests Test 09/21/21 10:19 09/21/21 10:20 Range/Units Influenza Type A (RT-PCR) Not Detected Not Detecte Influenza Type B (RT-PCR) Not Detected Not Detecte SARS-CoV-2 RNA (RT-PCR) Not Detected Not Detecte White Blood Count 6.9 4.3-11.0 10^3/uL Red Blood Count 4.58 3.80-5.11 10^6/uL Hemoglobin 13.6 11.5-16.0 g/dL Hematocrit 43 35-52 % Mean Corpuscular Volume 93 80-99 fL Mean Corpuscular Hemoglobin 30 25-34 pg Mean Corpuscular Hemoglobin Concent 32 32-36 g/dL Red Cell Distribution Width 12.3 10.0-14.5 % Platelet Count 220 130-400 10^3/uL Mean Platelet Volume 9.3 9.0-12.2 fL Immature Granulocyte % (Auto) 0 % Neutrophils (%) (Auto) 76 H 42-75 % Lymphocytes (%) (Auto) 15 12-44 % Monocytes (%) (Auto) 8 0-12 % Eosinophils (%) (Auto) 1 0-10 % Basophils (%) (Auto) 0 0-10 % Neutrophils # (Auto) 5.2 1.8-7.8 10^3/uL Lymphocytes # (Auto) 1.0 1.0-4.0 10^3/uL Monocytes # (Auto) 0.5 0.0-1.0 10^3/uL Eosinophils # (Auto) 0.1 0.0-0.3 10^3/uL Basophils # (Auto) 0.0 0.0-0.1 10^3/uL Immature Granulocyte # (Auto) 0.0 0.0-0.1 10^3/uL Sodium Level 140 135-145 MMOL/L Potassium Level 4.4 3.6-5.0 MMOL/L Chloride Level 108 H 98-107 MMOL/L Carbon Dioxide Level 19 L 21-32 MMOL/L Anion Gap 13 5-14 MMOL/L Blood Urea Nitrogen 15 7-18 MG/DL Creatinine 0.79 0.60-1.30 MG/DL Estimat Glomerular Filtration Rate 91 BUN/Creatinine Ratio 19 Glucose Level 103 70-105 MG/DL Calcium Level 8.7 8.5-10.1 MG/DL Corrected Calcium 8.9 8.5-10.1 MG/DL Total Bilirubin 0.4 0.1-1.0 MG/DL Aspartate Amino Transf (AST/SGOT) 20 5-34 U/L Alanine Aminotransferase (ALT/SGPT) 23 0-55 U/L Alkaline Phosphatase 79 40-136 U/L Total Creatine Kinase 95 29-168 U/L Total Protein 7.0 6.4-8.2 GM/DL Albumin 3.7 3.2-4.5 GM/DL Serum Test, Qualitative NEGATIVE NEGATIVE My Orders Orders - CINDY TOBIN MD Ed Iv/Invasive Line Start (09/21/21 09:18) Cbc With Automated Diff (09/21/21 09:18) Comprehensive Metabolic Panel (09/21/21 09:18) Creatine Kinase (09/21/21 09:18) Ekg Tracing (09/21/21 09:18) Chest 1 View, Ap/Pa Only (09/21/21 09:18) Covid 19 Inhouse Test (09/21/21 09:18) Influenza A And B By Pcr (09/21/21 09:18) Isolation Central Supply Req (09/21/21 09:18) Hcg,Qualitative Serum (09/21/21 09:18) Ondansetron Oral Dissolve Tab (Zofran (09/21/21 09:51) Troponin I [place] (09/21/21 11:15) Vital Signs/I&O 09/21/21 08:25 Temp 36.3 Pulse 77 Resp 16 B/P (MAP) 184/99 (127) Pulse Ox 93 O2 Delivery Room Air Capillary Refill : Blood Pressure Mean: 127 Progress Note : Time: 11:29 Progress Note Patient became increasingly agitated with numerous lab draws for specimens. She told the nurse she wanted to leave AMA, got up and walked out - apparently did sogn the paperwork. I was unable to make it back into the room to let her know due to risk factors for heart disease we needed to evaluate a troponin. He chest xray was suggestive of pneumonia. SHe left without any instructions by me or prescriptions. EkG was reassuring. VSS. SHe did admit to methamphetamine abuse. Is a smoker. ECG Initial ECG Impression Date: Sep 21, 2021 Initial ECG Impression Time: 09:25 Initial ECG Rate: 75 Initial ECG Rhythm: Normal Sinus Initial ECG Intervals: Normal Initial ECG Intervals DC 169 QRS 107 QTc 496 Initial ECG Impression: Normal, Nonspecific Changes Diagnostic Imaging Diagonstic Imaging: Xray Plain Films/CT/US/NM/MRI: chest Comments [facility]. [place], [place] NAME: DEON YOO [facility] REC#: [id number] PT STATUS: REG ER : 1970 PHYSICIAN: CINDY TOBIN MD ADMIT DATE: 09/21/21/ER Draft Date of Exam:09/21/21 CHEST 1 VIEW, AP/PA ONLY INDICATION: Chest pain, nausea and vomiting starting this morning. EXAMINATION: Chest 09/21/2021 COMPARISON: 02/11/2020 FINDINGS: The heart is unremarkable. There is prominence of the perihilar regions with mild atelectasis versus infiltrate at the right lung base. There are no effusions. No pneumothorax. IMPRESSION: 1. Left perihilar prominence which could be due to congestion versus infiltrate with a right base infiltrate suspected. Follow-up recommended to assure resolution. Dictated on workstation # [id number] Dict: 09/21/21 0944 Trans: 09/21/21 0947 [facility] [id number] Interpreted by: PADMA RAMSAY MD Electronically signed by: Departure Impression Primary Impression: Nausea and vomiting Qualified Codes: R11.2 - Nausea with vomiting, unspecified Additional Impressions: Methamphetamine abuse Chest pain Qualified Codes: R07.9 - Chest pain, unspecified Disposition: 07 AGAINST MEDICAL ADVICE Condition: Against Medical Advice Departure-Patient Inst. Referrals: SANTO ALVARADO MD (PCP/Family) Primary Care Physician CINDY TOBIN MD Sep 21, 2021 09:24
--- NOTE | 2021-09-21 09:47 | Diagnostic Imaging Report ---
INDICATION: Chest pain, nausea and vomiting starting this morning. EXAMINATION: Chest 09/21/2021 COMPARISON: 02/11/2020 FINDINGS: The heart is unremarkable. There is prominence of the perihilar regions with mild atelectasis versus infiltrate at the right lung base. There are no effusions. No pneumothorax. IMPRESSION: 1. Left perihilar prominence which could be due to congestion versus infiltrate with a right base infiltrate suspected. Follow-up recommended to assure resolution. Dictated by: Dictated on workstation # [id number]
[2021-09-21] MEDS ORDERED: ONDANSETRON 4 MG (ZOFRAN) ORAL DISSOLVE TAB PO STA (09:51)
[2021-09-21 10:31] LABS: BASOPHILS % (AUTO) 0 % (0-10); EOSINOPHILS # (AUTO) 0.1 10^3/uL (0.0-0.3); EOSINOPHILS % (AUTO) 1 % (0-10); HEMATOCRIT 43 % (35-52); HEMOGLOBIN 13.6 g/dL (11.5-16.0); LYMPHOCYTES % (AUTO) 15 % (12-44); MEAN CORPUSCULAR HEMOGLOBIN 30 pg (25-34); MEAN CORPUSCULAR HGB CONC 32 g/dL (32-36); MEAN CORPUSCULAR VOLUME 93 fL (80-99); MEAN PLATELET VOLUME 9.3 fL (9.0-12.2); MONOCYTES # (AUTO) 0.5 10^3/uL (0.0-1.0); MONOCYTES % (AUTO) 8 % (0-12); NEUTROPHILS # (AUTO) 5.2 10^3/uL (1.8-7.8); NEUTROPHILS % (AUTO) 76 % (42-75); PLATELET COUNT 220 10^3/uL (130-400); WHITE BLOOD COUNT 6.9 10^3/uL (4.3-11.0)
[2021-09-21 10:50] LABS: ALBUMIN 3.7 GM/DL (3.2-4.5); POTASSIUM 4.4 MMOL/L (3.6-5.0)
[2021-09-21 10:52] LABS: CALCIUM 8.7 MG/DL (8.5-10.1)
[2021-09-21 10:55] LABS: BILIRUBIN,TOTAL 0.4 MG/DL (0.1-1.0)
[2021-09-21 10:57] LABS: CREATININE SERUM 0.79 MG/DL (0.60-1.30)
== END 2021-09-21 11:28 | disposition left against medical advice (07) ==
LOC: EDUNIT# 08:25 → ER 08:28
DX: R11.2 Nausea with vomiting, unspecified (principal); R07.9 Chest pain, unspecified; F15.10 Other stimulant abuse, uncomplicated; Z20.822 Contact with and (suspected) exposure to COVID-19
CPT/HCPCS: 36415; 71045; 80053; 82550; 84703; 85025; 87636; 93005

== ENCOUNTER → 2022-08-03 | Outpatient (CLI) | payer SELFPAY ==
[2022-08-03 17:34] LABS: FREE T4 (FREE THYROXINE) 1.09 NG/DL (0.70-1.48)
== END ==
LOC: LABNPT 16:52
PROVIDERS: ATTEND Nurse Practitioner Family
DX: Z01.89 Encounter for other specified special examinations (principal)
CPT/HCPCS: 84439; 84443; G0480; 80320